=== PATIENT | female | born 1990 | race Caucasian/White ===

== ENCOUNTER 2024-02-13 09:05 | Emergency (ER) | payer OTHER, SELFPAY ==
[2024-02-13] MEDS ORDERED: Fluorescein Opthalmic Strip ONE (09:13)
[2024-02-13] MEDS ORDERED: Tetracaine 0.5% PF 4 ML BOT ONE (09:13)
== END 2024-02-13 10:06 | disposition home or self-care (01) ==
LOC: BURERS 09:05
DX: H16.002 Unspecified corneal ulcer, left eye (principal); Z55.6 Problems related to health literacy
CPT/HCPCS: 99283